=== PATIENT | female | born 1960 | race Caucasian/White ===

== ENCOUNTER 2017-05-09 14:36 | Emergency (ER) | payer SELFPAY ==
[2017-05-09 17:56] LABS: BASOPHILS 0.4 % (0-2); EOSINOPHILS 3.9 % (0-7); HEMATOCRIT 40.2 % (36.0-48.0); HEMOGLOBIN 13.3 g/dL (12-16); IMMATURE GRANULOCYTES 0.4 % (0-5); LYMPHOCYTES 40.7 % (15-50); MCH 28.2 pg (26.0-34.0); MCHC 33.1 g/dL (31.0-37.0); MCV 85.2 fL (80.0-100.0); MEAN PLATELET VOLUME 9.3 fL (7.4-10.4); MONOCYTES 6.8 % (2-11); NEUTROPHILS 47.8 % (40-80); RBC 4.72 10x6/uL (4.00-5.40); RDW 14.1 % (11.5-14.5); WBC 8.5 10x3/uL (4.8-10.8)
[2017-05-09 18:06] LABS: PLATELET COUNT 233 10x3/uL (130-400)
[2017-05-09 18:13] LABS: ALBUMIN 3.6 g/dL (3.4-5.0); ALKALINE PHOSPHATASE 73 U/L (46-116); ALT (SGPT) 24 U/L (10-68); C-REACTIVE PROTEIN 0.3 mg/dL (0.0-0.9); CALC OSMOLALITY 276 mosm/kg (275-300); CARBON DIOXIDE 28.1 mmol/L (21.0-32.0); CHLORIDE - SERUM 100 mmol/L (98-107); CREATININE - SERUM 0.7 mg/dL (0.6-1.3); GLUCOSE 134 mg/dL (74-106); MAGNESIUM - SERUM 1.8 mg/dL (1.8-2.4); POTASSIUM - SERUM 3.4 mmol/L (3.5-5.1); PROTEIN - SERUM 7.4 g/dL (6.4-8.2); SODIUM 138 mmol/L (136-145); UREA NITROGEN 10 mg/dL (7-18); eGFR NON AFRICAN AMERICAN > 90 mL/min (90-120)
[2017-05-09 19:17] LABS: CHOL - HDL RATIO 4.3 ratio (2.3-4.1); CHOLESTEROL, TOTAL 193 mg/dL (0-200); HDL CHOLESTEROL 45 mg/dL (32-96); LDL CHOLESTEROL 116 mg/dL (0-100); LDL-HDL RATIO 2.6 ratio (1.5-3.5); TRIGLYCERIDE 160 mg/dL (30-200)
[2017-05-09 19:19] LABS: ERYTHROCYTE SEDIMENTATION RATE 13 mm/hr (0-30)
[2017-07-11 19:46] VITALS: BMI 27.0
== END 2017-05-09 18:56 | disposition home or self-care (01) ==
LOC: D.ER 14:36
PROVIDERS: Emergency Medicine
DX: R51 Headache (principal); H53.47 Heteronymous bilateral field defects; E11.9 Type 2 diabetes mellitus without complications; I10 Essential (primary) hypertension

== ENCOUNTER → 2017-05-16 09:00 | Outpatient (CLI) | payer OTHER ==
[~2017-05-16 09:00] MED LIST: AUGMENTIN 875-11 TAB PO; BAYER CHEWABLE81 MG PO; BUTALBITAL-ASP-1 CAP PO; COREG6.25 MG PO; COZAAR25 MG PO; ELAVIL10 MG PO; FLORAJEN3 CAPS460 MG PO; GLUCOPHAGE1000 MG PO; HUMULIN N100 U/ML SC; NICODERM C1 PATCH .2 TRANSDERM; NORCO 7.5/325 T1 TA1 PO; PLAVIX75 MG PO; PRAVACHOL40 MG PO; VIBRAMYCIN 100100 MG PO; ZOLOFT100 MG PO
[2017-07-11 19:46] VITALS: BMI 27.0
== END | disposition home or self-care (01) ==
LOC: D.CT 09:00
DX: G45.9 Transient cerebral ischemic attack, unspecified (principal)

== ENCOUNTER 2017-06-21 12:51 | Inpatient (IN) | payer OTHER ==
[~2017-06-21] VITALS: Ht 167.6 cm; Wt 79.5 kg
[2017-06-21 13:32] LABS: BASOPHILS 0.3 % (0-2); EOSINOPHILS 2.1 % (0-7); HEMATOCRIT 37.3 % (36.0-48.0); HEMOGLOBIN 12.4 g/dL (12-16); IMMATURE GRANULOCYTES 0.2 % (0-5); MCH 29.2 pg (26.0-34.0); MCHC 33.2 g/dL (31.0-37.0); MCV 87.8 fL (80.0-100.0); MEAN PLATELET VOLUME 9.2 fL (7.4-10.4); MONOCYTES 4.4 % (2-11); PLATELET COUNT 206 10x3/uL (130-400); RBC 4.25 10x6/uL (4.00-5.40); RDW 14.1 % (11.5-14.5); WBC 11.5 10x3/uL (4.8-10.8)
[2017-06-21 13:50] LABS: ALBUMIN 3.4 g/dL (3.4-5.0); ALKALINE PHOSPHATASE 95 U/L (46-116); ALT (SGPT) 18 U/L (10-68); BILIRUBIN - TOTAL 0.24 mg/dL (0.2-1.3); CALC OSMOLALITY 283 mosm/kg (275-300); CALCIUM 9.2 mg/dL (8.5-10.1); CARBON DIOXIDE 28.9 mmol/L (21.0-32.0); CHLORIDE - SERUM 100 mmol/L (98-107); CREATININE - SERUM 0.7 mg/dL (0.6-1.3); POTASSIUM - SERUM 4.1 mmol/L (3.5-5.1); PROTEIN - SERUM 7.6 g/dL (6.4-8.2); SODIUM 139 mmol/L (136-145); UREA NITROGEN 16 mg/dL (7-18); eGFR NON AFRICAN AMERICAN > 90 mL/min (90-120)
[2017-06-21 13:51] LABS: GLUCOSE 195 mg/dL (74-106)
[2017-06-21 14:06] LABS: APPEARANCE CLEAR (CLEAR); BILIRUBIN NEGATIVE (NEGATIVE); COLOR DK YELLOW (YELLOW); GLUCOSE NEGATIVE (NEGATIVE); KETONE NEGATIVE (NEGATIVE); NITRITE NEGATIVE (NEGATIVE); PROTEIN NEGATIVE (NEGATIVE); SPECIFIC GRAVITY 1.025 (1.005-1.020); UROBILINOGEN NORMAL (NORMAL)
[2017-06-21 21:01] VITALS: BP 114/57
[2017-06-21] MEDS ORDERED: BUTALBITAL-ASP-1 CAP PO (21:02)
[2017-06-21] MEDS ORDERED: ELAVIL10 MG PO (21:04)
[2017-06-21] MEDS ORDERED: GLUCOPHAGE1000 MG PO (21:04)
[2017-06-21] MEDS ORDERED: VIBRAMYCIN 100100 MG PO (21:05)
[2017-06-21] MEDS ORDERED: COZAAR25 MG PO (21:06)
[2017-06-21] MEDS ORDERED: PLAVIX75 MG PO (21:06)
[2017-06-21] MEDS ORDERED: HUMULIN N100 U/ML SC (21:07)
[2017-06-21] MEDS ORDERED: ZOLOFT100 MG PO (21:07)
[2017-06-21] MEDS ORDERED: PRAVACHOL40 MG PO (21:08)
[2017-06-21] MEDS ORDERED: COREG6.25 MG PO (21:08)
[2017-06-21] MEDS ORDERED: BAYER CHEWABLE81 MG PO (21:10)
[2017-06-22 02:24] VITALS: BP 114/57; BMI 27.5
[2017-06-22 06:04] LABS: BASOPHILS 0.3 % (0-2); EOSINOPHILS 3.4 % (0-7); HEMOGLOBIN 11.4 g/dL (12-16); IMMATURE GRANULOCYTES 0.3 % (0-5); LYMPHOCYTES 36.4 % (15-50); MCH 28.7 pg (26.0-34.0); MCHC 32.6 g/dL (31.0-37.0); MCV 88.2 fL (80.0-100.0); MEAN PLATELET VOLUME 9.5 fL (7.4-10.4); MONOCYTES 5.7 % (2-11); NEUTROPHILS 53.9 % (40-80); PLATELET COUNT 195 10x3/uL (130-400); RBC 3.97 10x6/uL (4.00-5.40); RDW 14.3 % (11.5-14.5)
[2017-06-22 06:13] LABS: WBC 6.8 10x3/uL (4.8-10.8)
[2017-06-22 06:22] VITALS: BP 96/59
[2017-06-22 06:28] LABS: CALC OSMOLALITY 281 mosm/kg (275-300); CALCIUM 8.6 mg/dL (8.5-10.1); CARBON DIOXIDE 27.9 mmol/L (21.0-32.0); CHLORIDE - SERUM 103 mmol/L (98-107); CREATININE - SERUM 0.6 mg/dL (0.6-1.3); POTASSIUM - SERUM 4.1 mmol/L (3.5-5.1); SODIUM 140 mmol/L (136-145); UREA NITROGEN 15 mg/dL (7-18); eGFR NON AFRICAN AMERICAN > 90 mL/min (90-120)
[2017-06-22 06:30] LABS: GLUCOSE 142 mg/dL (74-106)
[2017-06-22 08:51] VITALS: BP 102/39
[2017-06-22 09:57] VITALS: BMI 27.6
[2017-06-22 10:44] VITALS: Ht 167.6 cm; Wt 79.5 kg
[2017-06-22 11:37] LABS: % SATURATION 19 % (15-55); IRON 46 ug/dl (35-150); TOTAL IRON BIND CAPACITY 241 ug/dl (260-445); UNSAT IRON BIND CAPACITY 195 ug/dl (150-375)
[2017-06-22 11:40] VITALS: BP 114/55
[2017-06-22 16:48] VITALS: BP 113/65
[2017-06-22 22:13] VITALS: BP 102/55
[2017-06-23 01:26] VITALS: BP 109/60
[2017-06-23 04:16] LABS: BASOPHILS 0.5 % (0-2); EOSINOPHILS 4.3 % (0-7); IMMATURE GRANULOCYTES 0.2 % (0-5); LYMPHOCYTES 46.2 % (15-50); MCH 28.4 pg (26.0-34.0); MCHC 32.4 g/dL (31.0-37.0); MCV 87.9 fL (80.0-100.0); MEAN PLATELET VOLUME 9.1 fL (7.4-10.4); MONOCYTES 7.4 % (2-11); NEUTROPHILS 41.4 % (40-80); PLATELET COUNT 191 10x3/uL (130-400); RBC 3.87 10x6/uL (4.00-5.40); RDW 13.9 % (11.5-14.5); WBC 6.2 10x3/uL (4.8-10.8)
[2017-06-23 04:47] LABS: CALC OSMOLALITY 283 mosm/kg (275-300); CALCIUM 8.5 mg/dL (8.5-10.1); CARBON DIOXIDE 29.2 mmol/L (21.0-32.0); CHLORIDE - SERUM 105 mmol/L (98-107); CREATININE - SERUM 0.6 mg/dL (0.6-1.3); GLUCOSE 126 mg/dL (74-106); POTASSIUM - SERUM 4.2 mmol/L (3.5-5.1); SODIUM 142 mmol/L (136-145); eGFR NON AFRICAN AMERICAN > 90 mL/min (90-120)
[2017-06-23 05:00] VITALS: BP 106/54
[2017-06-23 05:02] LABS: UREA NITROGEN 10 mg/dL (7-18)
[2017-06-23 08:19] LABS: FOLATE (FOLIC ACID) - SERUM >20.0 ng/mL (>3.0)
[2017-06-23 08:38] VITALS: BP 123/71
[2017-06-23 11:40] VITALS: BP 118/65
[2017-06-23 16:33] VITALS: BP 120/72
[2017-06-23 20:00] VITALS: BP 144/58
[2017-06-24 01:00] VITALS: BP 123/62
[2017-06-24 04:51] LABS: BASOPHILS 0.3 % (0-2); EOSINOPHILS 4.3 % (0-7); HEMATOCRIT 32.2 % (36.0-48.0); HEMOGLOBIN 10.6 g/dL (12-16); IMMATURE GRANULOCYTES 0.3 % (0-5); LYMPHOCYTES 42.4 % (15-50); MCH 28.4 pg (26.0-34.0); MCHC 32.9 g/dL (31.0-37.0); MCV 86.3 fL (80.0-100.0); MONOCYTES 5.6 % (2-11); NEUTROPHILS 47.1 % (40-80); PLATELET COUNT 197 10x3/uL (130-400); RBC 3.73 10x6/uL (4.00-5.40); RDW 13.6 % (11.5-14.5)
[2017-06-24 04:56] LABS: CALC OSMOLALITY 282 mosm/kg (275-300); CALCIUM 8.1 mg/dL (8.5-10.1); CARBON DIOXIDE 27.4 mmol/L (21.0-32.0); CHLORIDE - SERUM 106 mmol/L (98-107); CREATININE - SERUM 0.6 mg/dL (0.6-1.3); GLUCOSE 141 mg/dL (74-106); POTASSIUM - SERUM 3.7 mmol/L (3.5-5.1); SODIUM 142 mmol/L (136-145); eGFR NON AFRICAN AMERICAN > 90 mL/min (90-120)
[2017-06-24 04:57] LABS: UREA NITROGEN 7 mg/dL (7-18)
[2017-06-24 05:00] VITALS: BP 126/55
[2017-06-24 08:15] VITALS: BP 127/71
[2017-06-24] MEDS ORDERED: AUGMENTIN 875-11 TAB PO (11:54)
== END 2017-06-24 12:43 | disposition home or self-care (01) | DRG 392 ==
LOC: D.ER 12:51 → D.M2 16:05 → D.EDHOLD 16:05 → D.M2 17:23
PROVIDERS: Emergency Medicine; Internal Medicine Nephrology
DX: K57.92 Diverticulitis of intestine, part unspecified, without perforation or abscess without bleeding (principal); D64.9 Anemia, unspecified; K58.9 Irritable bowel syndrome, unspecified; E11.9 Type 2 diabetes mellitus without complications; Z95.0 Presence of cardiac pacemaker; I11.0 Hypertensive heart disease with heart failure; I50.9 Heart failure, unspecified; E78.5 Hyperlipidemia, unspecified; Z86.73 Personal history of transient ischemic attack (TIA), and cerebral infarction without residual deficits

== ENCOUNTER 2017-07-10 21:06 | Inpatient (IN) | payer OTHER ==
[~2017-07-10] VITALS: Ht 167.6 cm; Wt 75.9 kg
[~2017-07-10 21:06] MED LIST changes: -FLORAJEN3 CAPS460 MG PO; -NICODERM C1 PATCH .2 TRANSDERM; -NORCO 7.5/325 T1 TA1 PO
[2017-07-10 22:25] LABS: BASOPHILS 0.2 % (0-2); EOSINOPHILS 2.1 % (0-7); HEMATOCRIT 38.3 % (36.0-48.0); HEMOGLOBIN 12.7 g/dL (12-16); IMMATURE GRANULOCYTES 0.3 % (0-5); LYMPHOCYTES 29.9 % (15-50); MCH 28.9 pg (26.0-34.0); MCHC 33.2 g/dL (31.0-37.0); MEAN PLATELET VOLUME 9.3 fL (7.4-10.4); NEUTROPHILS 61.5 % (40-80); RDW 14.3 % (11.5-14.5); WBC 12.9 10x3/uL (4.8-10.8)
[2017-07-10 22:29] LABS: PLATELET COUNT 295 10x3/uL (130-400)
[2017-07-10 22:41] LABS: ALBUMIN 3.6 g/dL (3.4-5.0); ALKALINE PHOSPHATASE 106 U/L (46-116); ALT (SGPT) 20 U/L (10-68); CALC OSMOLALITY 279 mosm/kg (275-300); CALCIUM 9.3 mg/dL (8.5-10.1); CARBON DIOXIDE 28.2 mmol/L (21.0-32.0); CHLORIDE - SERUM 100 mmol/L (98-107); CREATININE - SERUM 0.7 mg/dL (0.6-1.3); GLUCOSE 179 mg/dL (74-106); POTASSIUM - SERUM 3.9 mmol/L (3.5-5.1); PROTEIN - SERUM 7.7 g/dL (6.4-8.2); SODIUM 138 mmol/L (136-145); UREA NITROGEN 13 mg/dL (7-18); eGFR NON AFRICAN AMERICAN > 90 mL/min (90-120)
[2017-07-10 23:47] LABS: APPEARANCE CLEAR (CLEAR); BILIRUBIN NEGATIVE (NEGATIVE); COLOR YELLOW (YELLOW); GLUCOSE NEGATIVE (NEGATIVE); KETONE NEGATIVE (NEGATIVE); NITRITE NEGATIVE (NEGATIVE); PROTEIN NEGATIVE (NEGATIVE); UROBILINOGEN NORMAL (NORMAL)
[2017-07-10 23:49] LABS: BACTERIA FEW /hpf (NONE SEEN); EPITHELIAL CELLS 0-5 /hpf (0-5); MUCUS <1+ /lpf (NONE SEEN); RED CELLS - URINE 0-5 /hpf (0-5); WHITE CELLS - URINE 0-5 /hpf (0-5)
[2017-07-11 03:53] VITALS: BP 135/81; BMI 27.0
[2017-07-11 08:10] VITALS: BP 102/62
[2017-07-11 09:49] LABS: BASOPHILS 0.3 % (0-2); EOSINOPHILS 2.6 % (0-7); HEMATOCRIT 35.1 % (36.0-48.0); HEMOGLOBIN 11.4 g/dL (12-16); IMMATURE GRANULOCYTES 0.3 % (0-5); LYMPHOCYTES 32.8 % (15-50); MCH 28.6 pg (26.0-34.0); MCHC 32.5 g/dL (31.0-37.0); MEAN PLATELET VOLUME 8.9 fL (7.4-10.4); MONOCYTES 6.8 % (2-11); NEUTROPHILS 57.2 % (40-80); PLATELET COUNT 244 10x3/uL (130-400); RBC 3.99 10x6/uL (4.00-5.40); RDW 14.5 % (11.5-14.5)
[2017-07-11 09:50] LABS: WBC 7.8 10x3/uL (4.8-10.8)
[2017-07-11 10:05] LABS: ALBUMIN 2.9 g/dL (3.4-5.0); ALKALINE PHOSPHATASE 86 U/L (46-116); ALT (SGPT) 15 U/L (10-68); BILIRUBIN - TOTAL 0.15 mg/dL (0.2-1.3); CALC OSMOLALITY 279 mosm/kg (275-300); CALCIUM 8.2 mg/dL (8.5-10.1); CARBON DIOXIDE 27.2 mmol/L (21.0-32.0); CHLORIDE - SERUM 104 mmol/L (98-107); CREATININE - SERUM 0.6 mg/dL (0.6-1.3); GLUCOSE 158 mg/dL (74-106); POTASSIUM - SERUM 3.8 mmol/L (3.5-5.1); PROTEIN - SERUM 6.6 g/dL (6.4-8.2); SODIUM 139 mmol/L (136-145); UREA NITROGEN 10 mg/dL (7-18); eGFR NON AFRICAN AMERICAN > 90 mL/min (90-120)
[2017-07-11 11:41] VITALS: BP 113/62
[2017-07-11 16:08] VITALS: BP 101/56
[2017-07-11 19:46] VITALS: Ht 167.6 cm; Wt 75.9 kg
[2017-07-11 20:00] VITALS: BP 123/60
[2017-07-12 04:00] VITALS: BP 117/66
[2017-07-12 06:12] LABS: BASOPHILS 0.3 % (0-2); EOSINOPHILS 3.7 % (0-7); HEMATOCRIT 32.4 % (36.0-48.0); HEMOGLOBIN 10.4 g/dL (12-16); IMMATURE GRANULOCYTES 0.3 % (0-5); LYMPHOCYTES 44.7 % (15-50); MCH 28.7 pg (26.0-34.0); MCHC 32.1 g/dL (31.0-37.0); MCV 89.5 fL (80.0-100.0); PLATELET COUNT 239 10x3/uL (130-400); RBC 3.62 10x6/uL (4.00-5.40); RDW 14.1 % (11.5-14.5); WBC 7.1 10x3/uL (4.8-10.8)
[2017-07-12 06:40] LABS: ALBUMIN 2.6 g/dL (3.4-5.0); ALKALINE PHOSPHATASE 78 U/L (46-116); ALT (SGPT) 15 U/L (10-68); BILIRUBIN - TOTAL 0.17 mg/dL (0.2-1.3); CALCIUM 7.8 mg/dL (8.5-10.1); CARBON DIOXIDE 26.4 mmol/L (21.0-32.0); CHLORIDE - SERUM 107 mmol/L (98-107); CREATININE - SERUM 0.5 mg/dL (0.6-1.3); GLUCOSE 142 mg/dL (74-106); POTASSIUM - SERUM 3.9 mmol/L (3.5-5.1); SODIUM 141 mmol/L (136-145); eGFR NON AFRICAN AMERICAN > 90 mL/min (90-120)
[2017-07-12 06:41] LABS: CALC OSMOLALITY 280 mosm/kg (275-300); UREA NITROGEN 7 mg/dL (7-18)
[2017-07-12 09:21] VITALS: BP 121/67
[2017-07-12 12:31] VITALS: BP 101/57
[2017-07-12 16:53] VITALS: BP 131/72
[2017-07-12 20:00] VITALS: BP 116/58
[2017-07-13] VITALS: BP 129/69
[2017-07-13 04:00] VITALS: BP 126/60
[2017-07-13 05:56] LABS: BASOPHILS 0.3 % (0-2); EOSINOPHILS 3.7 % (0-7); HEMATOCRIT 32.8 % (36.0-48.0); HEMOGLOBIN 10.6 g/dL (12-16); IMMATURE GRANULOCYTES 0.3 % (0-5); LYMPHOCYTES 46.7 % (15-50); MCH 28.4 pg (26.0-34.0); MCHC 32.3 g/dL (31.0-37.0); MCV 87.9 fL (80.0-100.0); MEAN PLATELET VOLUME 8.9 fL (7.4-10.4); MONOCYTES 7.1 % (2-11); NEUTROPHILS 41.9 % (40-80); PLATELET COUNT 224 10x3/uL (130-400); RBC 3.73 10x6/uL (4.00-5.40); RDW 13.6 % (11.5-14.5); WBC 6.2 10x3/uL (4.8-10.8)
[2017-07-13 06:19] LABS: ALBUMIN 2.8 g/dL (3.4-5.0); ALKALINE PHOSPHATASE 87 U/L (46-116); CALCIUM 8.2 mg/dL (8.5-10.1); CARBON DIOXIDE 30.8 mmol/L (21.0-32.0); CHLORIDE - SERUM 105 mmol/L (98-107); CREATININE - SERUM 0.5 mg/dL (0.6-1.3); GLUCOSE 149 mg/dL (74-106); POTASSIUM - SERUM 3.9 mmol/L (3.5-5.1); PROTEIN - SERUM 6.3 g/dL (6.4-8.2); SODIUM 141 mmol/L (136-145); eGFR NON AFRICAN AMERICAN > 90 mL/min (90-120)
[2017-07-13 06:21] LABS: ALT (SGPT) 30 U/L (10-68); CALC OSMOLALITY 280 mosm/kg (275-300); UREA NITROGEN 5 mg/dL (7-18)
[2017-07-13 07:51] VITALS: BP 132/74
[2017-07-13 12:24] VITALS: BP 133/61
[2017-07-13 15:57] VITALS: BP 120/56
[2017-07-13 19:36] VITALS: BP 112/56
[2017-07-14] VITALS: BP 124/49
[2017-07-14 04:00] VITALS: BP 105/60
[2017-07-14 06:18] LABS: BASOPHILS 0.3 % (0-2); EOSINOPHILS 3.7 % (0-7); HEMATOCRIT 33.5 % (36.0-48.0); HEMOGLOBIN 11.1 g/dL (12-16); IMMATURE GRANULOCYTES 0.5 % (0-5); LYMPHOCYTES 40.8 % (15-50); MCH 28.5 pg (26.0-34.0); MCHC 33.1 g/dL (31.0-37.0); MCV 86.1 fL (80.0-100.0); MEAN PLATELET VOLUME 9.4 fL (7.4-10.4); MONOCYTES 6.3 % (2-11); NEUTROPHILS 48.4 % (40-80); PLATELET COUNT 238 10x3/uL (130-400); RBC 3.89 10x6/uL (4.00-5.40); RDW 13.5 % (11.5-14.5); WBC 6.6 10x3/uL (4.8-10.8)
[2017-07-14 06:50] LABS: ALBUMIN 2.9 g/dL (3.4-5.0); ALKALINE PHOSPHATASE 88 U/L (46-116); ALT (SGPT) 28 U/L (10-68); CALCIUM 8.6 mg/dL (8.5-10.1); CARBON DIOXIDE 28.2 mmol/L (21.0-32.0); CHLORIDE - SERUM 104 mmol/L (98-107); POTASSIUM - SERUM 3.6 mmol/L (3.5-5.1); PROTEIN - SERUM 6.4 g/dL (6.4-8.2); SODIUM 142 mmol/L (136-145)
[2017-07-14 06:52] LABS: CALC OSMOLALITY 287 mosm/kg (275-300); CREATININE - SERUM 0.8 mg/dL (0.6-1.3); GLUCOSE 218 mg/dL (74-106); UREA NITROGEN 7 mg/dL (7-18); eGFR NON AFRICAN AMERICAN 78 mL/min (90-120)
[2017-07-14 08:18] VITALS: BP 102/64
[2017-07-14] MEDS ORDERED: NICODERM C1 PATCH .2 TRANSDERM (11:03)
[2017-07-14] MEDS ORDERED: FLORAJEN3 CAPS460 MG PO (11:04)
[2017-07-14] MEDS ORDERED: AUGMENTIN 875-11 TAB PO (11:05)
[2017-07-14] MEDS ORDERED: NORCO 7.5/325 T1 TA1 PO (11:06)
== END 2017-07-14 12:45 | disposition home or self-care (01) | DRG 392 ==
LOC: D.ER 21:06 → D.MS 07-11 01:25 → D.EDHOLD 07-11 01:25 → D.MS 07-11 02:32
PROVIDERS: Family Medicine
DX: K57.32 Diverticulitis of large intestine without perforation or abscess without bleeding (principal); I50.32 Chronic diastolic (congestive) heart failure; F17.203 Nicotine dependence unspecified, with withdrawal; I11.0 Hypertensive heart disease with heart failure; E11.65 Type 2 diabetes mellitus with hyperglycemia; E78.5 Hyperlipidemia, unspecified; F41.8 Other specified anxiety disorders; Z95.0 Presence of cardiac pacemaker; D64.9 Anemia, unspecified

== ENCOUNTER 2017-08-25 09:13 | Day surgery (SDC) | payer OTHER ==
[~2017-08-25] VITALS: Ht 167.6 cm; Wt 73.5 kg
--- NOTE | ~2017-08-25 | HP ---
PATIENT: SARAH SO MEDICAL RECORD: [id number] ACCOUNT: [id number] LOCATION:[facility] : 58 ADMISSION DATE: 08/25/17 HISTORY AND PHYSICAL EXAMINATION HISTORY: Sarah is 57 years old. She has been having problems with nasal obstruction and has been found to have a large left antrochoanal polyp causing her symptoms. She is being admitted for nasal surgery. PAST MEDICAL HISTORY: Includes diabetes, coronary artery disease, reactive airway disease, pacemaker, history of stroke, and diverticulitis. PAST SURGICAL HISTORY: Includes cholecystectomy, pacemaker, lipoma excision. CURRENT MEDICATIONS: Include metformin, Humulin insulin, sertraline, amitriptyline, butalbital, Plavix, losartan. ALLERGIES: TOPIRAMATE, MORPHINE, FLAGYL, LEVAQUIN. PHYSICAL EXAMINATION: GENERAL: She is healthy appearing. FACE: Normal, symmetric. No lesions. EYES: Sclerae and conjunctivae are normal. EARS: Canals and TMs are normal. NOSE: On anterior rhinoscopy, looks good; but on endoscopy, there is a large left antrochoanal polyp filling the choana posteriorly. ORAL CAVITY AND OROPHARYNX: Tongue protrudes in midline. Pharynx is normal. NECK: No masses. No adenopathy. IMPRESSION: Nasal obstruction, allergic rhinitis, left antrochoanal polyp. PLAN: Left middle meatal antrostomy, left endoscopic nasal polypectomy, outfracture of the inferior turbinates. We can draw blood for RAST at that time. TRANSINT:[id number] Voice Confirmation ID: [id number] DOCUMENT ID: [id number] RAFFAELE VILLARREAL MD at 1802 CC: [id number] DICTATION DATE: 08/23/17 1443 OPERATING ROOM TECHNOLOGIST: 08/23/17 1517 REG [facility] [address] [place] [address]
--- NOTE | ~2017-08-25 | OP ---
PATIENT NAME: FAVIAN SO MEDICAL RECORD: [id number] :58 LOCATION:TY ADMISSION DATE: SURGEON: GOPI POWER MD DATE OF OPERATION: 08/25/2017 PREOPERATIVE DIAGNOSES: Nasal obstruction, nasal polyposis, left chronic maxillary sinusitis. POSTOPERATIVE DIAGNOSES: Nasal obstruction, nasal polyposis, left chronic maxillary sinusitis. PROCEDURES: Endoscopic left nasal polypectomy, left medial antrostomy and bilateral inferior turbinate outfracture. SURGEON: Gopi Power MD ANESTHESIA: General orotracheal. BLOOD LOSS: 2 cc. SPECIMENS: Left nasal polyp. COMPLICATIONS: None. DISPOSITION: Recovery stable. DESCRIPTION OF PROCEDURE: She was brought to the operating room and placed in supine position, sedated and intubated by anesthesia. The head was turned 90 degrees. Head drapes applied and she was positioned, prepped and draped for nasal surgery. She had been decongested with Afrin preoperatively. Both sides of the nose were examined. The left middle turbinate, inferior turbinate were injected with less than 0.5 cc of 1% lidocaine with 1:100,000 epinephrine. Two Afrin pledgets were placed in the left, one in the right, and then after setting up for sinus surgery, all the pledgets were removed. The right side was examined first. Inferior turbinate was large, but the middle turbinate, middle meatus, nasal vault and nasopharynx were normal with exception of a large polyp obstructing from the opposite side, most of the nasopharynx. Inferior turbinate has polypoid changes that were cauterized and was outfractured with a [place] elevator. Then, the left side was examined. Again, there was a large inferior turbinate and the anterior aspect of the middle turbinate looked normal, but the entire posterior nasal cavity was totally obscured by a polyp. The middle turbinate was generally medialized with a freer. The inferior turbinate was outfractured with a [place] elevator giving better view of the nasal polyp. There was actually 2 separate nasal polyps, one extruding from the natural ostia and one from the accessory ostia. They were grasped with upbiting forceps and both removed pulling as much polypoid tissue out of the sinus as possible. Those were sent for specimen. Then, the maxillary ostia was enlarged. A large curved olive tip suction was inserted to evacuate some very thick mucus material in the sinus. Angled scope was inserted to visualize the sinus that really looked normal. Mucosa left behind was intact and normal. There was some bleeding from the edges of the maxillary ostia. Suction cautery was used to stop a little bit of bleeding. The inferior turbinate polypoid changes were cauterized with suction cautery and it was outfractured with a [place] elevator. Nasopharynx was suctioned. The maxillary sinus was suctioned, irrigated repeatedly with saline, suctioned and then there were some placed in the maxillary sinus and the middle OPERATIVE REPORT [id number] FAVIAN SO meatus to help with any bleeding since she was anticoagulated, although with very minimal. The nasopharynx was suctioned. She was awakened, extubated, and transported to recovery in good condition. No complications. TRANSINT:[id number] Voice Confirmation ID: [id number] DOCUMENT ID: [id number] GOPI POWER MD at 1803 CC: [id number] DICTATION DATE: 08/25/17 1552 HAND STONE POLISHER: 08/25/[address] [facility] [address] [place] [id number]
[~2017-08-25 09:13] MED LIST changes: +FLORAJEN3 CAPS460 MG PO; +NICODERM C1 PATCH .2 TRANSDERM; +NORCO 7.5/325 T1 TA1 PO
[2017-08-25 09:44] LABS: BASOPHILS 0.3 % (0-2); EOSINOPHILS 2.6 % (0-7); HEMOGLOBIN 13.4 g/dL (12-16); IMMATURE GRANULOCYTES 0.2 % (0-5); LYMPHOCYTES 30.5 % (15-50); MCH 29.6 pg (26.0-34.0); MCHC 34.4 g/dL (31.0-37.0); MCV 86.1 fL (80.0-100.0); MEAN PLATELET VOLUME 9.4 fL (7.4-10.4); NEUTROPHILS 61.4 % (40-80); PLATELET COUNT 243 10x3/uL (130-400); RBC 4.53 10x6/uL (4.00-5.40); RDW 13.8 % (11.5-14.5); WBC 10.2 10x3/uL (4.8-10.8)
[2017-08-25 10:18] LABS: CALC OSMOLALITY 283 mosm/kg (275-300); CALCIUM 9.3 mg/dL (8.5-10.1); CARBON DIOXIDE 27.9 mmol/L (21.0-32.0); CHLORIDE - SERUM 103 mmol/L (98-107); CREATININE - SERUM 0.7 mg/dL (0.6-1.3); GLUCOSE 178 mg/dL (74-106); POTASSIUM - SERUM 4.2 mmol/L (3.5-5.1); SODIUM 139 mmol/L (136-145); UREA NITROGEN 18 mg/dL (7-18); eGFR NON AFRICAN AMERICAN > 90 mL/min (90-120)
[2017-08-25 11:37] VITALS: BP 118/70; Ht 167.6 cm; Wt 73.5 kg
== END 2017-08-25 18:00 | disposition home or self-care (01) ==
LOC: D.OPS 09:13
PROVIDERS: Anesthesiology
DX: J34.89 Other specified disorders of nose and nasal sinuses (principal); J33.8 Other polyp of sinus; J32.0 Chronic maxillary sinusitis; E11.9 Type 2 diabetes mellitus without complications; I25.10 Atherosclerotic heart disease of native coronary artery without angina pectoris; J45.909 Unspecified asthma, uncomplicated; Z86.73 Personal history of transient ischemic attack (TIA), and cerebral infarction without residual deficits; Z95.0 Presence of cardiac pacemaker; Z79.84 Long term (current) use of oral hypoglycemic drugs; Z79.4 Long term (current) use of insulin; Z79.02 Long term (current) use of antithrombotics/antiplatelets; Z88.1 Allergy status to other antibiotic agents; Z88.5 Allergy status to narcotic agent; Z01.812 Encounter for preprocedural laboratory examination

== ENCOUNTER → 2017-09-20 13:05 | Outpatient (CLI) | payer OTHER ==
[2017-08-25 11:37] VITALS: BMI 26.2
[~2017-09-20 13:05] MED LIST changes: +AMOXICILLIN875 MG PO; +MIRALAX17 GM PO; +PERCOCET 5-3251 TAB PO
== END | disposition home or self-care (01) ==
LOC: D.CT 13:05
DX: I63.331 Cerebral infarction due to thrombosis of right posterior cerebral artery (principal)

== ENCOUNTER → 2017-09-29 12:19 | Outpatient (CLI) | payer OTHER ==
[2017-08-25 11:37] VITALS: BMI 26.2
[2017-09-29 13:03] LABS: CREATININE - SERUM 0.3 mg/dL (0.6-1.3)
[2017-09-29 14:05] LABS: ERYTHROCYTE SEDIMENTATION RATE 45 mm/hr (0-30)
== END | disposition home or self-care (01) ==
LOC: D.LAB 12:19 → D.CT 14:30
PROVIDERS: Internal Medicine Gastroenterology
DX: Z87.19 Personal history of other diseases of the digestive system (principal); R10.32 Left lower quadrant pain

== ENCOUNTER 2017-10-11 19:20 | Inpatient (IN) | payer OTHER ==
[~2017-10-11] VITALS: Ht 167.6 cm; Wt 76.0 kg
--- NOTE | ~2017-10-11 | OP ---
PATIENT NAME: FAVIAN SO MEDICAL RECORD: [id number] :58 LOCATION:D.[facility] [id number] ADMISSION DATE:10/11/17 SURGEON: BONNIE LARSEN MD DATE OF OPERATION: 10/16/2017 SURGEON: Bonnie Larsen MD (JJ) PEACH GROWER: Velia Bryant APRN PREOPERATIVE DIAGNOSIS: Recurrent chronic diverticulitis. POSTOPERATIVE DIAGNOSES: 1. Recurrent chronic diverticulitis. 2. Accessory spleen. ANESTHESIA: General. PROCEDURES: 1. Laparoscopic-assisted sigmoid colectomy. 2. Laparoscopic mobilization of splenic flexure. 3. Laparoscopic accessory splenectomy. ESTIMATED BLOOD LOSS: 150 cc. SPECIMENS: 1. Sigmoid colon. 2. Accessory spleen. Case was clean/contaminated. OPERATIVE COURSE: After consent was obtained, the patient was taken to the operating room and placed in the supine position on the operating table. Next, general anesthesia was given via endotracheal intubation after time-out was performed to confirm correct patient and procedure. The patient was placed into the lithotomy position. The abdomen was prepped and draped in typical sterile fashion. A skin incision was made from just below the umbilicus to the pubic symphysis. Dissection through the fascia continued with electrocautery to the subcutaneous tissue with electrocautery until the external oblique fascia was identified. The external oblique fascia was incised with #15 blade scalpel. The peritoneum was incised using Metzenbaum scissors. Remaining portion of the incision was opened under direct vision with electrocautery. The Darrion GelPort wound retractor was placed. The sigmoid colon was freed from the pelvic sidewall using Bovie electrocautery dissection. At this time, the GelPort was placed. A 5-mm trocar was placed just above the umbilicus. The abdomen was insufflated. Laparoscopic mobilization of splenic flexure occurred. The white line of Toldt was taken along the entire left colon using the Harmonic scalpel. The splenic flexure was mobilized using the Harmonic scalpel. During mobilization of splenic flexure, an accessory spleen was identified. It was dissected using Harmonic scalpel and sent for permanent pathology. Once adequate mobilization of splenic flexure was performed, the GelPort was removed. The abdomen was desufflated. A mesenteric window was created just beyond the colorectal junction. The colorectal junction was transected using a JESU stapler. The mesentery was taken with Harmonic scalpel. A section of approximately 6-8 inches of sigmoid colon was excised. A second mesenteric window was created 6-8 inches from the staple line. A second firing of the JESU OPERATIVE REPORT [id number] SARAYFAVIAN ELIZABETH stapler was done. The remaining portion of mesentery was taken with Harmonic scalpel. The specimen was sent for permanent pathology. There was adequate mobilization of left colon and splenic flexure. A [id number] anastomosis was performed. Enterotomies were made using the Harmonic scalpel. A nkpv-do-oxur colorectal anastomosis was performed with single firing of the JESU stapler. The common enterotomy was closed using interrupted 3-0 silk suture. Bowel clamp was placed. The pelvis was filled with saline. The rectum was dilated with air. There was no evidence of leak. At this time, the entire abdomen was copiously irrigated and suctioned. Evicel was applied to the suture line. Omentum was draped over the anterior staple line. The incision was closed in #1 looped PDS. At this time, prior to fascial closure, all members of the surgical team changed gown and gloves. The fascia was closed with #1 looped PDS. Skin was reapproximated using stapler. The Ioban dressing was removed. At the end of the case, all needle and instrument counts were correct. No complications occurred. The patient was extubated and transferred to the PACU in stable condition. TRANSINT:[id number] Voice Confirmation ID: [id number] DOCUMENT ID: [id number] BONNIE LARSEN MD at 1350 CC: [id number] DICTATION DATE: 10/16/17 1251 DERMATOLOGIST: 10/16/17 1342 ADM IN [facility] [address] [place] [address]
[~2017-10-11 19:20] MED LIST changes: -AMOXICILLIN875 MG PO; -MIRALAX17 GM PO; -PERCOCET 5-3251 TAB PO
[2017-10-11] MEDS ORDERED: AMOXICILLIN875 MG PO (19:32)
[2017-10-11 20:04] LABS: BASOPHILS 0.3 % (0-2); EOSINOPHILS 2.5 % (0-7); HEMATOCRIT 39.1 % (36.0-48.0); HEMOGLOBIN 13.2 g/dL (12-16); IMMATURE GRANULOCYTES 0.4 % (0-5); LYMPHOCYTES 38.8 % (15-50); MCH 29.2 pg (26.0-34.0); MCHC 33.8 g/dL (31.0-37.0); MCV 86.5 fL (80.0-100.0); MEAN PLATELET VOLUME 8.9 fL (7.4-10.4); MONOCYTES 6.9 % (2-11); NEUTROPHILS 51.1 % (40-80); RBC 4.52 10x6/uL (4.00-5.40); RDW 13.6 % (11.5-14.5); WBC 11.9 10x3/uL (4.8-10.8)
[2017-10-11 20:10] LABS: PLATELET COUNT 328 10x3/uL (130-400)
[2017-10-11 20:17] LABS: ALBUMIN 3.8 g/dL (3.4-5.0); ALKALINE PHOSPHATASE 100 U/L (46-116); ALT (SGPT) 17 U/L (10-68); BILIRUBIN - TOTAL 0.18 mg/dL (0.2-1.3); CALC OSMOLALITY 273 mosm/kg (275-300); CALCIUM 8.9 mg/dL (8.5-10.1); CARBON DIOXIDE 28.9 mmol/L (21.0-32.0); CHLORIDE - SERUM 101 mmol/L (98-107); CREATININE - SERUM 0.7 mg/dL (0.6-1.3); LIPASE 116 U/L (73-393); POTASSIUM - SERUM 3.7 mmol/L (3.5-5.1); PROTEIN - SERUM 7.7 g/dL (6.4-8.2); SODIUM 136 mmol/L (136-145); UREA NITROGEN 14 mg/dL (7-18); eGFR NON AFRICAN AMERICAN > 90 mL/min (90-120)
[2017-10-11 20:20] LABS: GLUCOSE 115 mg/dL (74-106)
[2017-10-11 21:12] LABS: APPEARANCE CLEAR (CLEAR); BILIRUBIN NEGATIVE (NEGATIVE); COLOR YELLOW (YELLOW); GLUCOSE NEGATIVE (NEGATIVE); KETONE NEGATIVE (NEGATIVE); NITRITE NEGATIVE (NEGATIVE); PROTEIN NEGATIVE (NEGATIVE); UROBILINOGEN NORMAL (NORMAL)
[2017-10-12] VITALS (7 sets, daily range): BP systolic 100–131; BP diastolic 52–70; BMI 25.0
[2017-10-12 06:28] LABS: BASOPHILS 0.5 % (0-2); EOSINOPHILS 2.6 % (0-7); HEMATOCRIT 35.5 % (36.0-48.0); HEMOGLOBIN 11.6 g/dL (12-16); IMMATURE GRANULOCYTES 0.4 % (0-5); LYMPHOCYTES 38.4 % (15-50); MCH 28.8 pg (26.0-34.0); MCHC 32.7 g/dL (31.0-37.0); MCV 88.1 fL (80.0-100.0); MEAN PLATELET VOLUME 8.7 fL (7.4-10.4); NEUTROPHILS 51.1 % (40-80); PLATELET COUNT 280 10x3/uL (130-400); RBC 4.03 10x6/uL (4.00-5.40); RDW 13.7 % (11.5-14.5)
[2017-10-12 06:54] LABS: ALKALINE PHOSPHATASE 82 U/L (46-116); BILIRUBIN - TOTAL 0.13 mg/dL (0.2-1.3); CALC OSMOLALITY 281 mosm/kg (275-300); CALCIUM 8.3 mg/dL (8.5-10.1); CARBON DIOXIDE 30.1 mmol/L (21.0-32.0); CHLORIDE - SERUM 105 mmol/L (98-107); CREATININE - SERUM 0.6 mg/dL (0.6-1.3); GLUCOSE 110 mg/dL (74-106); PROTEIN - SERUM 6.1 g/dL (6.4-8.2); SODIUM 141 mmol/L (136-145); UREA NITROGEN 12 mg/dL (7-18); eGFR NON AFRICAN AMERICAN > 90 mL/min (90-120)
[2017-10-12 07:12] LABS: ALT (SGPT) 12 U/L (10-68)
[2017-10-12 14:13] LABS: % SATURATION 10 % (15-55); IRON 41 ug/dl (35-150); TOTAL IRON BIND CAPACITY 394 ug/dl (260-445); UNSAT IRON BIND CAPACITY 353 ug/dl (150-375)
[2017-10-13 04:31] VITALS: BP 106/62
[2017-10-13 06:17] LABS: BASOPHILS 0.4 % (0-2); EOSINOPHILS 2.9 % (0-7); HEMATOCRIT 34.1 % (36.0-48.0); HEMOGLOBIN 11.3 g/dL (12-16); IMMATURE GRANULOCYTES 0.2 % (0-5); LYMPHOCYTES 38.2 % (15-50); MCH 29.1 pg (26.0-34.0); MCHC 33.1 g/dL (31.0-37.0); MCV 87.9 fL (80.0-100.0); MEAN PLATELET VOLUME 8.7 fL (7.4-10.4); MONOCYTES 6.3 % (2-11); PLATELET COUNT 246 10x3/uL (130-400); RBC 3.88 10x6/uL (4.00-5.40); RDW 13.8 % (11.5-14.5); WBC 8.2 10x3/uL (4.8-10.8)
[2017-10-13 07:02] LABS: AMYLASE - SERUM 34 U/L (25-115); CALC OSMOLALITY 279 mosm/kg (275-300); CALCIUM 7.9 mg/dL (8.5-10.1); CARBON DIOXIDE 30.5 mmol/L (21.0-32.0); CHLORIDE - SERUM 104 mmol/L (98-107); CREATININE - SERUM 0.5 mg/dL (0.6-1.3); GLUCOSE 135 mg/dL (74-106); POTASSIUM - SERUM 3.9 mmol/L (3.5-5.1); SODIUM 141 mmol/L (136-145); eGFR NON AFRICAN AMERICAN > 90 mL/min (90-120)
[2017-10-13 07:04] LABS: UREA NITROGEN 5 mg/dL (7-18)
[2017-10-13 08:03] VITALS: BP 109/62
[2017-10-13 09:20] LABS: FOLATE (FOLIC ACID) - SERUM >20.0 ng/mL (>3.0)
[2017-10-13 12:24] VITALS: BP 101/60
[2017-10-13 14:52] VITALS: Ht 167.6 cm; Wt 76.0 kg
[2017-10-13 15:48] VITALS: BP 121/69
[2017-10-13 20:16] VITALS: BP 127/70
[2017-10-14] VITALS (7 sets, daily range): BP systolic 115–134; BP diastolic 59–77
[2017-10-14 06:56] LABS: BASOPHILS 0.4 % (0-2); EOSINOPHILS 3.3 % (0-7); HEMATOCRIT 33.2 % (36.0-48.0); HEMOGLOBIN 10.8 g/dL (12-16); IMMATURE GRANULOCYTES 0.3 % (0-5); LYMPHOCYTES 44.3 % (15-50); MCH 28.6 pg (26.0-34.0); MCHC 32.5 g/dL (31.0-37.0); MCV 87.8 fL (80.0-100.0); NEUTROPHILS 45.7 % (40-80); PLATELET COUNT 254 10x3/uL (130-400); RBC 3.78 10x6/uL (4.00-5.40); RDW 13.4 % (11.5-14.5); WBC 7.5 10x3/uL (4.8-10.8)
[2017-10-14 07:04] LABS: CALC OSMOLALITY 284 mosm/kg (275-300); CALCIUM 8.3 mg/dL (8.5-10.1); CARBON DIOXIDE 32.9 mmol/L (21.0-32.0); CHLORIDE - SERUM 105 mmol/L (98-107); CREATININE - SERUM 0.6 mg/dL (0.6-1.3); POTASSIUM - SERUM 3.9 mmol/L (3.5-5.1); SODIUM 142 mmol/L (136-145); UREA NITROGEN 4 mg/dL (7-18); eGFR NON AFRICAN AMERICAN > 90 mL/min (90-120)
[2017-10-14 07:12] LABS: GLUCOSE 189 mg/dL (74-106)
[2017-10-15 04:02] VITALS: BP 138/76
[2017-10-15 05:11] LABS: BASOPHILS 0.5 % (0-2); EOSINOPHILS 3.9 % (0-7); HEMATOCRIT 34.8 % (36.0-48.0); HEMOGLOBIN 11.5 g/dL (12-16); IMMATURE GRANULOCYTES 0.3 % (0-5); LYMPHOCYTES 40.6 % (15-50); MCH 28.7 pg (26.0-34.0); MCV 86.8 fL (80.0-100.0); MEAN PLATELET VOLUME 9.1 fL (7.4-10.4); MONOCYTES 5.5 % (2-11); NEUTROPHILS 49.2 % (40-80); PLATELET COUNT 264 10x3/uL (130-400); RBC 4.01 10x6/uL (4.00-5.40); RDW 13.2 % (11.5-14.5); WBC 7.5 10x3/uL (4.8-10.8)
[2017-10-15 05:30] LABS: CALC OSMOLALITY 279 mosm/kg (275-300); CALCIUM 8.6 mg/dL (8.5-10.1); CARBON DIOXIDE 32.7 mmol/L (21.0-32.0); CHLORIDE - SERUM 105 mmol/L (98-107); CREATININE - SERUM 0.5 mg/dL (0.6-1.3); GLUCOSE 154 mg/dL (74-106); POTASSIUM - SERUM 3.8 mmol/L (3.5-5.1); SODIUM 141 mmol/L (136-145); eGFR NON AFRICAN AMERICAN > 90 mL/min (90-120)
[2017-10-15 05:36] LABS: UREA NITROGEN 2 mg/dL (7-18)
[2017-10-15 08:25] VITALS: BP 144/82
[2017-10-15 12:37] VITALS: BP 114/60
[2017-10-15 20:30] VITALS: BP 126/67
[2017-10-16 00:30] VITALS: BP 129/62
[2017-10-16 04:30] VITALS: BP 134/71
[2017-10-16 06:39] LABS: BASOPHILS 0.4 % (0-2); EOSINOPHILS 3.7 % (0-7); HEMATOCRIT 35.1 % (36.0-48.0); HEMOGLOBIN 11.6 g/dL (12-16); IMMATURE GRANULOCYTES 0.2 % (0-5); LYMPHOCYTES 32.6 % (15-50); MCH 28.6 pg (26.0-34.0); MCV 86.5 fL (80.0-100.0); MEAN PLATELET VOLUME 9.3 fL (7.4-10.4); MONOCYTES 6.2 % (2-11); NEUTROPHILS 56.9 % (40-80); PLATELET COUNT 290 10x3/uL (130-400); RBC 4.06 10x6/uL (4.00-5.40); RDW 13.2 % (11.5-14.5); WBC 9.2 10x3/uL (4.8-10.8)
[2017-10-16 06:51] LABS: CALC OSMOLALITY 278 mosm/kg (275-300); CALCIUM 8.1 mg/dL (8.5-10.1); CARBON DIOXIDE 33.8 mmol/L (21.0-32.0); CHLORIDE - SERUM 102 mmol/L (98-107); CREATININE - SERUM 0.5 mg/dL (0.6-1.3); GLUCOSE 133 mg/dL (74-106); POTASSIUM - SERUM 3.9 mmol/L (3.5-5.1); SODIUM 141 mmol/L (136-145); UREA NITROGEN 2 mg/dL (7-18); eGFR NON AFRICAN AMERICAN > 90 mL/min (90-120)
[2017-10-16 08:13] VITALS: BP 123/66
[2017-10-16 14:03] VITALS: BP 119/63
[2017-10-16 16:25] VITALS: BP 119/63
[2017-10-16 20:44] VITALS: BP 105/58
[2017-10-17 00:24] VITALS: BP 133/74
[2017-10-17 04:58] VITALS: BP 113/60
[2017-10-17 07:22] LABS: BASOPHILS 0.2 % (0-2); EOSINOPHILS 1.7 % (0-7); HEMATOCRIT 31.7 % (36.0-48.0); HEMOGLOBIN 10.4 g/dL (12-16); IMMATURE GRANULOCYTES 0.2 % (0-5); MCH 28.7 pg (26.0-34.0); MCHC 32.8 g/dL (31.0-37.0); MCV 87.6 fL (80.0-100.0); MEAN PLATELET VOLUME 9.1 fL (7.4-10.4); MONOCYTES 7.6 % (2-11); NEUTROPHILS 61.3 % (40-80); PLATELET COUNT 251 10x3/uL (130-400); RBC 3.62 10x6/uL (4.00-5.40); RDW 13.4 % (11.5-14.5); WBC 8.3 10x3/uL (4.8-10.8)
[2017-10-17 07:49] LABS: CALC OSMOLALITY 278 mosm/kg (275-300); CALCIUM 7.6 mg/dL (8.5-10.1); CARBON DIOXIDE 29.9 mmol/L (21.0-32.0); CHLORIDE - SERUM 105 mmol/L (98-107); CREATININE - SERUM 0.6 mg/dL (0.6-1.3); GLUCOSE 155 mg/dL (74-106); POTASSIUM - SERUM 3.5 mmol/L (3.5-5.1); SODIUM 140 mmol/L (136-145); eGFR NON AFRICAN AMERICAN > 90 mL/min (90-120)
[2017-10-17 07:53] LABS: UREA NITROGEN 4 mg/dL (7-18)
[2017-10-17 08:39] VITALS: BP 92/55
[2017-10-17 13:02] VITALS: BP 85/50
[2017-10-17 16:37] VITALS: BP 96/60
[2017-10-17 23:19] VITALS: BP 124/74
[2017-10-18 03:40] VITALS: BP 98/54
[2017-10-18 06:16] LABS: BASOPHILS 0.3 % (0-2); EOSINOPHILS 3.4 % (0-7); HEMATOCRIT 30.5 % (36.0-48.0); HEMOGLOBIN 9.9 g/dL (12-16); IMMATURE GRANULOCYTES 0.2 % (0-5); LYMPHOCYTES 21.9 % (15-50); MCH 28.4 pg (26.0-34.0); MCHC 32.5 g/dL (31.0-37.0); MCV 87.6 fL (80.0-100.0); MEAN PLATELET VOLUME 9.2 fL (7.4-10.4); MONOCYTES 6.3 % (2-11); NEUTROPHILS 67.9 % (40-80); PLATELET COUNT 253 10x3/uL (130-400); RBC 3.48 10x6/uL (4.00-5.40); RDW 13.4 % (11.5-14.5); WBC 8.7 10x3/uL (4.8-10.8)
[2017-10-18 06:51] LABS: ALBUMIN 2.3 g/dL (3.4-5.0); ALKALINE PHOSPHATASE 79 U/L (46-116); ALT (SGPT) 10 U/L (10-68); BILIRUBIN - TOTAL 0.24 mg/dL (0.2-1.3); CALC OSMOLALITY 276 mosm/kg (275-300); CALCIUM 7.6 mg/dL (8.5-10.1); CARBON DIOXIDE 28.6 mmol/L (21.0-32.0); CHLORIDE - SERUM 104 mmol/L (98-107); CREATININE - SERUM 0.6 mg/dL (0.6-1.3); GLUCOSE 141 mg/dL (74-106); POTASSIUM - SERUM 3.6 mmol/L (3.5-5.1); PROTEIN - SERUM 5.5 g/dL (6.4-8.2); SODIUM 139 mmol/L (136-145); UREA NITROGEN 5 mg/dL (7-18); VANCOMYCIN - TROUGH 8.2 ug/mL (10.0-20.0); eGFR NON AFRICAN AMERICAN > 90 mL/min (90-120)
[2017-10-18 08:04] VITALS: BP 123/68
[2017-10-18 13:24] VITALS: BP 148/70
[2017-10-18 13:28] LABS: CKMB 0.3 U/L (0.0-3.6); CREATINE KINASE 88 UL (21-215); TROPONIN-I < 0.017 ng/mL (0.000-0.060)
[2017-10-18 16:40] VITALS: BP 106/65
[2017-10-18 19:36] LABS: CKMB 0.3 U/L (0.0-3.6); CREATINE KINASE 86 UL (21-215); TROPONIN-I < 0.017 ng/mL (0.000-0.060)
[2017-10-18 20:32] VITALS: BP 93/50
[2017-10-19 00:38] VITALS: BP 116/64; BP 126/61
[2017-10-19 01:16] LABS: CKMB 0.2 U/L (0.0-3.6); CREATINE KINASE 86 UL (21-215)
[2017-10-19 01:17] LABS: TROPONIN-I < 0.017 ng/mL (0.000-0.060)
[2017-10-19 04:49] VITALS: BP 116/76
[2017-10-19 06:48] LABS: BASOPHILS 0.3 % (0-2); EOSINOPHILS 5.8 % (0-7); HEMATOCRIT 28.6 % (36.0-48.0); HEMOGLOBIN 9.4 g/dL (12-16); IMMATURE GRANULOCYTES 0.2 % (0-5); LYMPHOCYTES 28.2 % (15-50); MCH 28.8 pg (26.0-34.0); MCHC 32.9 g/dL (31.0-37.0); MCV 87.7 fL (80.0-100.0); MEAN PLATELET VOLUME 9.2 fL (7.4-10.4); MONOCYTES 6.2 % (2-11); NEUTROPHILS 59.3 % (40-80); PLATELET COUNT 271 10x3/uL (130-400); RBC 3.26 10x6/uL (4.00-5.40); RDW 13.3 % (11.5-14.5)
[2017-10-19 06:58] LABS: WBC 6.2 10x3/uL (4.8-10.8)
[2017-10-19 07:22] LABS: ALBUMIN 2.3 g/dL (3.4-5.0); ALKALINE PHOSPHATASE 87 U/L (46-116); ALT (SGPT) 11 U/L (10-68); BILIRUBIN - TOTAL 0.21 mg/dL (0.2-1.3); CALC OSMOLALITY 278 mosm/kg (275-300); CALCIUM 7.8 mg/dL (8.5-10.1); CARBON DIOXIDE 32.1 mmol/L (21.0-32.0); CHLORIDE - SERUM 104 mmol/L (98-107); CREATININE - SERUM 0.5 mg/dL (0.6-1.3); GLUCOSE 109 mg/dL (74-106); POTASSIUM - SERUM 3.3 mmol/L (3.5-5.1); PROTEIN - SERUM 5.6 g/dL (6.4-8.2); SODIUM 141 mmol/L (136-145); UREA NITROGEN 5 mg/dL (7-18); eGFR NON AFRICAN AMERICAN > 90 mL/min (90-120)
[2017-10-19 09:14] VITALS: BP 117/57
[2017-10-19 12:19] VITALS: BP 117/53
[2017-10-19 16:17] VITALS: BP 125/63
[2017-10-19 21:29] VITALS: BP 124/64
[2017-10-20 00:14] VITALS: BP 130/61
[2017-10-20 04:36] VITALS: BP 127/64
[2017-10-20 05:50] LABS: BASOPHILS 0.2 % (0-2); EOSINOPHILS 5.1 % (0-7); HEMATOCRIT 27.3 % (36.0-48.0); HEMOGLOBIN 9.1 g/dL (12-16); IMMATURE GRANULOCYTES 0.2 % (0-5); LYMPHOCYTES 34.8 % (15-50); MCH 28.7 pg (26.0-34.0); MCHC 33.3 g/dL (31.0-37.0); MCV 86.1 fL (80.0-100.0); MEAN PLATELET VOLUME 8.9 fL (7.4-10.4); MONOCYTES 9.8 % (2-11); NEUTROPHILS 49.9 % (40-80); PLATELET COUNT 258 10x3/uL (130-400); RBC 3.17 10x6/uL (4.00-5.40); RDW 13.1 % (11.5-14.5); WBC 4.7 10x3/uL (4.8-10.8)
[2017-10-20 06:19] LABS: ALBUMIN 2.2 g/dL (3.4-5.0); ALKALINE PHOSPHATASE 93 U/L (46-116); ALT (SGPT) 11 U/L (10-68); CALC OSMOLALITY 280 mosm/kg (275-300); CALCIUM 7.9 mg/dL (8.5-10.1); CARBON DIOXIDE 31.7 mmol/L (21.0-32.0); CHLORIDE - SERUM 105 mmol/L (98-107); CREATININE - SERUM 0.5 mg/dL (0.6-1.3); GLUCOSE 144 mg/dL (74-106); POTASSIUM - SERUM 3.5 mmol/L (3.5-5.1); PROTEIN - SERUM 5.5 g/dL (6.4-8.2); SODIUM 141 mmol/L (136-145); UREA NITROGEN 4 mg/dL (7-18); eGFR NON AFRICAN AMERICAN > 90 mL/min (90-120)
[2017-10-20 08:54] VITALS: BP 127/68
[2017-10-20] MEDS ORDERED: MIRALAX17 GM PO (09:22)
[2017-10-20] MEDS ORDERED: PERCOCET 5-3251 TAB PO (09:22)
== END 2017-10-20 15:27 | disposition home or self-care (01) | DRG 330 ==
LOC: D.ER 19:20 → D.MS 22:11
PROVIDERS: Family Medicine; Family Medicine Adult Medicine; Internal Medicine Nephrology; Surgery
PROC: 0DNL0ZZ Release Transverse Colon, Open Approach (ICD-10-PCS; 2017-10-16)
PROC: 07TP0ZZ Resection of Spleen, Open Approach (ICD-10-PCS; 2017-10-16)
PROC: 0DTN0ZZ Resection of Sigmoid Colon, Open Approach (ICD-10-PCS; principal; 2017-10-16 09:00)
DX: K57.32 Diverticulitis of large intestine without perforation or abscess without bleeding (principal); A04.72 Enterocolitis due to Clostridium difficile, not specified as recurrent; F17.203 Nicotine dependence unspecified, with withdrawal; I10 Essential (primary) hypertension; E78.5 Hyperlipidemia, unspecified; E11.65 Type 2 diabetes mellitus with hyperglycemia; Z79.4 Long term (current) use of insulin; J45.909 Unspecified asthma, uncomplicated; R13.10 Dysphagia, unspecified; F41.8 Other specified anxiety disorders; R10.13 Epigastric pain; Z95.0 Presence of cardiac pacemaker; Z86.73 Personal history of transient ischemic attack (TIA), and cerebral infarction without residual deficits; D64.9 Anemia, unspecified

== ENCOUNTER 2017-11-23 12:55 | Emergency (ER) | payer OTHER ==
[~2017-11-23] VITALS: Ht 167.6 cm; Wt 69.2 kg
[~2017-11-23 12:55] MED LIST changes: +AMOXICILLIN875 MG PO; +MIRALAX17 GM PO; +PERCOCET 5-3251 TAB PO
[2017-11-23 13:02] VITALS: Ht 167.6 cm; Wt 69.2 kg
[2017-11-23 13:23] LABS: BASOPHILS 0.3 % (0-2); EOSINOPHILS 1.9 % (0-7); HEMATOCRIT 36.9 % (36.0-48.0); HEMOGLOBIN 12.2 g/dL (12-16); IMMATURE GRANULOCYTES 0.3 % (0-5); LYMPHOCYTES 40.1 % (15-50); MCH 28.2 pg (26.0-34.0); MCHC 33.1 g/dL (31.0-37.0); MCV 85.4 fL (80.0-100.0); MEAN PLATELET VOLUME 9.2 fL (7.4-10.4); MONOCYTES 6.1 % (2-11); NEUTROPHILS 51.3 % (40-80); PLATELET COUNT 258 10x3/uL (130-400); RBC 4.32 10x6/uL (4.00-5.40); RDW 13.7 % (11.5-14.5); WBC 9.9 10x3/uL (4.8-10.8)
[2017-11-23 13:32] LABS: INR 1.08 (0.85-1.17); PROTIME 13.6 SECONDS (11.6-15.0)
[2017-11-23 13:34] LABS: D-DIMER-QUANTITATIVE 0.47 ug/mLFEU (0.20-0.54)
[2017-11-23 13:37] LABS: ALBUMIN 3.7 g/dL (3.4-5.0); ALKALINE PHOSPHATASE 89 U/L (46-116); ALT (SGPT) 22 U/L (10-68); BILIRUBIN - TOTAL 0.17 mg/dL (0.2-1.3); CALC OSMOLALITY 281 mosm/kg (275-300); CALCIUM 8.8 mg/dL (8.5-10.1); CARBON DIOXIDE 25.6 mmol/L (21.0-32.0); CHLORIDE - SERUM 100 mmol/L (98-107); CREATININE - SERUM 0.8 mg/dL (0.6-1.3); GLUCOSE 181 mg/dL (74-106); PROTEIN - SERUM 7.3 g/dL (6.4-8.2); SODIUM 138 mmol/L (136-145); UREA NITROGEN 14 mg/dL (7-18); eGFR NON AFRICAN AMERICAN 78 mL/min (90-120)
[2017-11-23 13:54] LABS: CREATINE KINASE 54 UL (21-215); MAGNESIUM - SERUM 1.6 mg/dL (1.8-2.4); TROPONIN-I < 0.017 ng/mL (0.000-0.060)
[2017-11-23 13:55] LABS: THYROID STIMULATING HORMONE 1.17 uIU/mL (0.36-3.74)
[2017-11-23 14:14] LABS: CKMB 0.4 U/L (0.0-3.6)
[2017-11-23 14:45] LABS: APPEARANCE CLEAR (CLEAR); BILIRUBIN NEGATIVE (NEGATIVE); COLOR YELLOW (YELLOW); GLUCOSE NEGATIVE (NEGATIVE); KETONE NEGATIVE (NEGATIVE); NITRITE NEGATIVE (NEGATIVE); PROTEIN NEGATIVE (NEGATIVE); UROBILINOGEN NORMAL (NORMAL)
[2017-11-23 17:37] VITALS: BP 122/69
== END 2017-11-23 17:00 | disposition other institution (70) ==
LOC: D.ER 12:55
PROVIDERS: Family Medicine
DX: G45.9 Transient cerebral ischemic attack, unspecified (principal); H53.9 Unspecified visual disturbance; R29.810 Facial weakness; E11.9 Type 2 diabetes mellitus without complications; Z95.0 Presence of cardiac pacemaker; I50.9 Heart failure, unspecified; F17.200 Nicotine dependence, unspecified, uncomplicated

== ENCOUNTER → 2018-01-09 08:40 | Outpatient (CLI) | payer OTHER ==
[2017-11-23 13:02] VITALS: BMI 24.6
[2018-01-09 09:37] LABS: ALBUMIN 3.6 g/dL (3.4-5.0); BILIRUBIN - INDIRECT 0.11 mg/dL (0.00-1.00); BILIRUBIN - TOTAL 0.12 mg/dL (0.2-1.3); PROTEIN - SERUM 7.3 g/dL (6.4-8.2)
[2018-01-09 09:39] LABS: BILIRUBIN - DIRECT 0.01 mg/dL (0.00-0.30)
== END | disposition home or self-care (01) ==
LOC: D.US 08:40
PROVIDERS: Internal Medicine Gastroenterology
DX: K76.0 Fatty (change of) liver, not elsewhere classified (principal); K57.92 Diverticulitis of intestine, part unspecified, without perforation or abscess without bleeding

== ENCOUNTER → 2018-02-10 14:59 | Outpatient (CLI) | payer OTHER ==
[2017-11-23 13:02] VITALS: BMI 24.6
[2018-02-10 15:37] LABS: BASOPHILS 0.3 % (0-2); EOSINOPHILS 2.6 % (0-7); HEMATOCRIT 37.9 % (36.0-48.0); HEMOGLOBIN 12.4 g/dL (12-16); IMMATURE GRANULOCYTES 0.5 % (0-5); LYMPHOCYTES 35.5 % (15-50); MCH 27.4 pg (26.0-34.0); MCHC 32.7 g/dL (31.0-37.0); MCV 83.7 fL (80.0-100.0); MEAN PLATELET VOLUME 9.3 fL (7.4-10.4); MONOCYTES 5.8 % (2-11); NEUTROPHILS 55.3 % (40-80); PLATELET COUNT 275 10x3/uL (130-400); RBC 4.53 10x6/uL (4.00-5.40); RDW 14.9 % (11.5-14.5); WBC 9.8 10x3/uL (4.8-10.8)
[2018-02-10 15:55] LABS: CALC OSMOLALITY 283 mosm/kg (275-300); CARBON DIOXIDE 30.5 mmol/L (21.0-32.0); CHLORIDE - SERUM 98 mmol/L (98-107); CREATININE - SERUM 0.6 mg/dL (0.6-1.3); GLUCOSE 185 mg/dL (74-106); SODIUM 139 mmol/L (136-145); UREA NITROGEN 16 mg/dL (7-18); eGFR NON AFRICAN AMERICAN > 90 mL/min (90-120)
== END | disposition home or self-care (01) ==
LOC: D.LABREF 14:59
DX: Q21.1 Atrial septal defect (principal); I50.20 Unspecified systolic (congestive) heart failure; I63.9 Cerebral infarction, unspecified

== ENCOUNTER 2019-07-02 09:25 | Emergency (ER) | payer OTHER ==
[~2019-07-02] VITALS: Ht 167.6 cm; Wt 77.3 kg
[2019-07-02 09:35] VITALS: Ht 167.6 cm; Wt 77.3 kg
[2019-07-02 11:07] VITALS: BP 127/83
== END 2019-07-02 11:08 | disposition home or self-care (01) ==
LOC: D.ER 09:25
DX: S06.0X0A Concussion without loss of consciousness, initial encounter (principal); Y04.2XXA Assault by strike against or bumped into by another person, initial encounter; Y93.9 Activity, unspecified; Y92.9 Unspecified place or not applicable; S00.03XA Contusion of scalp, initial encounter; Z86.73 Personal history of transient ischemic attack (TIA), and cerebral infarction without residual deficits; E11.9 Type 2 diabetes mellitus without complications; I50.9 Heart failure, unspecified; Z95.0 Presence of cardiac pacemaker; J45.909 Unspecified asthma, uncomplicated; Z72.0 Tobacco use; Z79.4 Long term (current) use of insulin

== ENCOUNTER 2020-05-26 08:23 | Outpatient (CLI) | payer OTHER ==
[2020-03-26 20:43] VITALS: BMI 25.0
[~2020-05-26 08:23] MED LIST changes: +ASCORBIC ACID500 MG PO; +DECADRON4 MG PO; +HYDROCODON-ACE1 EAC7 PO; +KLONOPIN0.5 MG PO; +LANTUS INS100 UNITS/ SC; +VITAMIN B-1100 M1 PO; +ZOFRAN4 MG PO; +ZPAK PO
== END 2020-05-26 23:55 | disposition home or self-care (01) ==
LOC: D.MAMMO 08:23
PROVIDERS: ATTEND Family Medicine
DX: Z12.31 Encounter for screening mammogram for malignant neoplasm of breast (principal)